=== PATIENT | female | born 1985 | race Caucasian/White ===

== ENCOUNTER 2019-09-20 07:18 | Inpatient (IN) | payer OTHER ==
[2019-09-18 17:14] VITALS: BMI 31.4
[2019-09-20] MEDS ORDERED: PHENAZOPYRIDINE HCL 100 MG TABLET (FP) ONE (07:47)
[2019-09-20] MEDS ORDERED: PNEUMOC 13-VAL CONJ-DIP CRM/PF 0.5 ML DISP.SYRIN IM ONE (08:03)
[2019-09-20] MEDS ORDERED: CEFAZOLIN 2 GM in DEXTROSE 5%-WATER - 100 ML IVPB ONE (08:21)
[2019-09-20] MEDS ORDERED: PHENAZOPYRIDINE HCL 100 MG TABLET (FP) PO ONE (08:21)
[2019-09-20] MEDS ORDERED: MIDAZOLAM HCL 2 MG/2 ML SINGLE DOSE VIAL ONE (08:47)
[2019-09-20] MEDS ORDERED: ROCURONIUM BROMIDE 50 MG/5 ML SYRINGE ONE (08:48)
[2019-09-20] MEDS ORDERED: PROPOFOL 20 ML ONE ×2 (08:48)
[2019-09-20] MEDS ORDERED: oxyCODONE HCL 5 MG TABLET PO PRN ×2 (08:48)
[2019-09-20] MEDS ORDERED: ONDANSETRON 4 MG/2 ML VIAL IVPUSH PRN ×3 (08:48→12:38)
--- NOTE | 2019-09-20 09:09 | HP ---
History & Physical Update - History History: No Change - Physical Physical: No Change - Assessment Assessment: No Change - Plan Plan: No Change (Full H&P is in paper chart from 08/24/19)
[2019-09-20] MEDS ORDERED: ROPIVACAINE HCL 0.5% 30ML VIAL ONE (09:16)
--- NOTE | 2019-09-20 09:21 | OP ---
Operative Note - Note: Operative Date: 09/20/19 Pre-Operative Diagnosis: Leiomyomatous Uterus. Intramural myomas. subserosal myomas Operation: Abdominal Myomectomy - extensive Findings: 21 myomas Post-Operative Diagnosis: Same as Pre-op Surgeon: Lavinia Nava Commutator Inspector: Boby Browne Anesthesia: General Estimated Blood Loss (mls): 600 Operative Report Dictated: Yes
[2019-09-20] MEDS ORDERED: fentaNYL CITRATE 250 MCG/5 ML VIAL ONE (09:53)
[2019-09-20] MEDS ORDERED: ACETAMINOPHEN INJECTION 100 ML IVPB ONE (09:55)
[2019-09-20] MEDS ORDERED: ceFAZolin 2 GRAM PREMIX BAG IVPB ONE (10:05)
[2019-09-20] MEDS ORDERED: DEXAMETHASONE SOD PHOSPHATE 4 MG/1 ML VIAL ONE (10:08)
[2019-09-20] MEDS ORDERED: ceFAZolin SODIUM 1 GM VIAL ONE ×2 (10:15→17:28)
[2019-09-20] MEDS ORDERED: ePHEDrine SULFATE 50 MG/1 ML AMPULE ONE (10:30)
[2019-09-20] MEDS ORDERED: KETOROLAC TROMETHAMINE 30 MG/1 ML VIAL ONE (10:32)
[2019-09-20] MEDS ORDERED: NEOSTIGMINE METHYLSULFATE 0.5 MG/ML - 10 ML MDV ONE (10:32)
[2019-09-20] MEDS ORDERED: GLYCOPYRROLATE 0.2 MG/1 ML VIAL ONE (10:44)
[2019-09-20] MEDS ORDERED: DESFLURANE GAS 240 ML BOTTLE IH ONE (10:54)
[2019-09-20] MEDS ORDERED: HYDROmorphone HCl 2 MG/ML VIAL ONE (11:47)
[2019-09-20] MEDS ORDERED: IBUPROFEN 800 MG/8 ML IJ IVPB PRN (12:11)
[2019-09-20] MEDS ORDERED: DOCUSATE SODIUM 100 MG CAPSULE (FP) PO PRN (12:11)
[2019-09-20] MEDS ORDERED: BISACODYL 5 MG TABLET.DR (FP) PO PRN (12:11)
[2019-09-20] MEDS ORDERED: SIMETHICONE 80 MG TAB.CHEW (FP) PO PRN (12:11)
--- NOTE | 2019-09-20 12:19 | SURG ---
Surgery Echocardiography Radiology Technologist Note Echocardiography Radiology Technologist: Boby Browne PA-C Date of Service: 09/20/19 Diagnosis: Fibroid uterus Procedure: Abdominal myomectomy I was present for the entirety of the operative procedure. For further detail, please refer to operative report. Visit type - Case Type Case Type: Scheduled - Emergency Emergency Visit: No - New patient This patient is new to me today: Yes Date on this admission: 09/20/19 - Critical Care Critical Care patient: No
[2019-09-20] MEDS: HYDROmorphone *PCA* 10MG/50ML DISP.SYRIN PCA SCH (12:45)
[2019-09-20 13:06] LABS: BASO % 0.5 % (0-2.0); EOS % 0.3 % (0-4.5); HEMATOCRIT 25.1 % (32.4-45.2); HEMOGLOBIN 7.6 GM/dL (10.7-15.3); LYMPH % 11.9 % (8-40); MCHC 30.2 g/dl (32.0-36.0); MEAN CELL VOLUME 64.6 fl (80-96); MEAN PLT VOLUME 10.3 fl (7.5-11.1); MONO % 1.3 % (3.8-10.2); PLATELET COUNT 313 K/MM3 (134-434); RBC 3.88 M/mm3 (3.60-5.2); RDW 21.7 % (11.6-15.6)
[2019-09-20 13:07] LABS: MCH 19.5 pg (25.7-33.7)
[2019-09-20 13:51] LABS: ANISOCYTOSIS 2+; MACROCYTOSIS 0; OVALOCYTE 1+; PLATELET ESTIMATE NORMAL; TEAR DROP CELLS 1+
[2019-09-20] MEDS: LACTATED RINGERS SOLUTION 1,000 ML IV SCH (14:43)
[2019-09-20] MEDS: metFORMIN HCL 500 MG TABLET (FP) PO SCH (16:16)
[2019-09-20] MEDS: sitaGLIPtin PHOSPHATE 50 MG TABLET PO SCH (16:16)
[2019-09-20] MEDS ORDERED: DEXTROSE 5%-WATER - 50 ML IVPB ONE (17:28)
[2019-09-20] MEDS: CEFAZOLIN 1 GM in DEXTROSE 5%-WATER - 50 ML IVPB SCH (17:31)
[2019-09-20 20:59] LABS: HEMATOCRIT 23.5 % (32.4-45.2); MCHC 29.9 g/dl (32.0-36.0); MEAN PLT VOLUME 10.1 fl (7.5-11.1); PLATELET COUNT 227 K/MM3 (134-434); RBC 3.68 M/mm3 (3.60-5.2); RDW 21.6 % (11.6-15.6); WHITE BLOOD COUNT 12.9 K/mm3 (4.0-10.0)
[2019-09-20 21:02] LABS: MCH 19.1 pg (25.7-33.7)
[2019-09-20 21:04] LABS: CALCIUM 7.8 mg/dL (8.5-10.1); CREATININE 0.8 mg/dL (0.55-1.3); POTASSIUM 4.6 mmol/L (3.5-5.1)
[2019-09-20] MEDS ORDERED: PATIENT'S OWN MEDICATION (NON-FORMULARY) (Sitagliptin Phos/Metformin Hcl [Janumet 50-1,000 PO SCH (22:00)
[2019-09-21] MEDS ORDERED: ceFAZolin SODIUM 1 GM VIAL ONE ×2 (00:16→10:05)
[2019-09-21] MEDS ORDERED: DEXTROSE 5%-WATER - 50 ML IVPB ONE ×2 (00:16→10:05)
[2019-09-21] MEDS: CEFAZOLIN 1 GM in DEXTROSE 5%-WATER - 50 ML IVPB SCH ×2 (01:13→10:07)
[2019-09-21] MEDS: metFORMIN HCL 500 MG TABLET (FP) PO SCH ×2 (06:03→17:12)
[2019-09-21] MEDS: sitaGLIPtin PHOSPHATE 50 MG TABLET PO SCH ×2 (06:03→17:15)
[2019-09-21] MEDS: glipiZIDE-XL 5 MG TAB.ER.24 PO SCH (06:03)
[2019-09-21 08:08] LABS: HEMOGLOBIN 7.6 GM/dL (10.7-15.3); MCH 21.7 pg (25.7-33.7); MCHC 32.9 g/dl (32.0-36.0); MEAN CELL VOLUME 66.1 fl (80-96); MEAN PLT VOLUME 10.3 fl (7.5-11.1); PLATELET COUNT 216 K/MM3 (134-434); RBC 3.49 M/mm3 (3.60-5.2); RDW 23.3 % (11.6-15.6); WHITE BLOOD COUNT 10.9 K/mm3 (4.0-10.0)
[2019-09-21 08:30] LABS: BLOOD UREA NITROGEN 11.7 mg/dL (7-18); CALCIUM 7.6 mg/dL (8.5-10.1); CREATININE 0.7 mg/dL (0.55-1.3)
[2019-09-21] MEDS ORDERED: PT OWN MED DRAWER 7, Y5N ONE ×2 (08:40→17:27)
--- NOTE | 2019-09-21 09:31 | PN ---
Progress Note (short form) - Note Progress Note: 34F POD#1 for open myomectomy under GA with TAP block. Pt. with IV DIGITAL ANALYTICS MANAGER. No anesthesia related complications. Pain adequately controlled with IV DIGITAL ANALYTICS MANAGER. Continue current management per primary team. Continue IV DIGITAL ANALYTICS MANAGER.
[2019-09-21] MEDS: ENOXAPARIN NA (PORCINE) 40 MG/0.4 ML DISP.SYRIN SQ SCH (09:41)
[2019-09-21] MEDS: MULTIVITAMINS THER W-MINERALS COMBO TABLET (FP) PO SCH (09:41)
[2019-09-21] MEDS: IRON POLYSACCHARIDES 150 MG CAPSULE PO SCH (09:42)
[2019-09-21] MEDS: LACTATED RINGERS SOLUTION 1,000 ML IV SCH ×2 (09:42→20:02)
--- NOTE | 2019-09-21 09:44 | PN ---
Progress Note (short form) - Note Progress Note: ASSISTANT HAIRSTYLIST SURGERY POD #1 s/p Abdominal myomectomy Alert. No acute events since surgery per RN notes. Hasn't been OOB yet. Storm remains in place. Denies n/v/f/c, CP, palpitations, SOB, MARQUEZ or vaginal bleeding. Last Vital Signs Temp Pulse Resp BP Pulse Ox 98.5 F 88 20 120/67 99 09/20/19 22:00 09/20/19 22:00 09/20/19 22:00 09/20/19 22:00 09/20/19 21:00 CBC, BMP 09/21/19 07:00 09/21/19 07:00 Blood Type Blood Type A NEGATIVE 09/20/19 07:28 Gen: nad ABD: obese habitus. dressing c/d/i. No hematoma. : storm to gravity (clear) LE: SCDs bilat. Soft. NT. No edema/swelling Problem List - Problems (1) Leiomyoma of body of uterus Assessment/Plan: OOB and ambulate Monitor H/H DC storm and begin TOV Regular diet Pain management via RADIAL DRILL PRESS OPERATOR FOR PLASTIC per Anasthesia (received pre-op TAP block as well) DC planning 09/22/19 Code(s): D25.9 - LEIOMYOMA OF UTERUS, UNSPECIFIED (2) Anemia Code(s): D64.9 - ANEMIA, UNSPECIFIED
[2019-09-21] MEDS ORDERED: PNEUMOCOCCAL 23 VACCINE 0.5 ML VIAL IM ONE (10:00)
[2019-09-21] MEDS: HYDROmorphone *PCA* 10MG/50ML DISP.SYRIN PCA SCH (15:01)
[2019-09-21 18:04] LABS: BASO % 0.2 % (0-2.0); EOS % 0.4 % (0-4.5); HEMATOCRIT 22.8 % (32.4-45.2); HEMOGLOBIN 7.2 GM/dL (10.7-15.3); LYMPH % 8.9 % (8-40); MCH 21.1 pg (25.7-33.7); MCHC 31.5 g/dl (32.0-36.0); MEAN CELL VOLUME 66.9 fl (80-96); MEAN PLT VOLUME 9.7 fl (7.5-11.1); MONO % 5.6 % (3.8-10.2); NEUT % 84.9 % (42.8-82.8); PLATELET COUNT 178 K/MM3 (134-434); RDW 23.6 % (11.6-15.6); WHITE BLOOD COUNT 11.7 K/mm3 (4.0-10.0)
[2019-09-21] MEDS: oxyCODONE HCL 5 MG TABLET PO PRN ×2 (19:41→23:44)
[2019-09-21] MEDS: ACETAMINOPHEN 325 MG TABLET (FP) PO PRN (21:41)
[2019-09-22] MEDS: oxyCODONE HCL 5 MG TABLET PO PRN ×4 (03:33→22:51)
[2019-09-22] MEDS: LACTATED RINGERS SOLUTION 1,000 ML IV SCH ×3 (03:48→19:41)
[2019-09-22] MEDS ORDERED: PT OWN MED DRAWER 7, Y5N ONE ×2 (05:22→09:26)
[2019-09-22] MEDS: metFORMIN HCL 500 MG TABLET (FP) PO SCH ×2 (06:53→16:53)
[2019-09-22] MEDS: sitaGLIPtin PHOSPHATE 50 MG TABLET PO SCH ×2 (06:54→16:53)
[2019-09-22] MEDS: glipiZIDE-XL 5 MG TAB.ER.24 PO SCH (06:54)
--- NOTE | 2019-09-22 08:12 | PN ---
Progress Note (short form) - Note Progress Note: Anesthesia pain pt seen and examined S:Alert and awake O: Vital Signs Temperature 99.1 F 09/22/19 07:32 Pulse Rate 63 09/22/19 07:32 Respiratory Rate 20 09/22/19 07:32 Blood Pressure 113/63 09/22/19 07:32 O2 Sat by Pulse Oximetry (%) 95 09/21/19 21:00 CBC, BMP 09/21/19 17:50 09/21/19 07:00 Current Active Problems Anemia (Acute) Leiomyoma of body of uterus (Acute) s/p Open myomectomy CERTIFIED ATHLETIC TRAINER dced Doing well post op Continue PO pain meds Kevyn Rubio MD
[2019-09-22] MEDS: ENOXAPARIN NA (PORCINE) 40 MG/0.4 ML DISP.SYRIN SQ SCH (09:22)
[2019-09-22] MEDS: MULTIVITAMINS THER W-MINERALS COMBO TABLET (FP) PO SCH (09:22)
[2019-09-22] MEDS: IRON POLYSACCHARIDES 150 MG CAPSULE PO SCH (09:26)
--- NOTE | 2019-09-22 09:33 | PN ---
Progress Note (SOAP) - Subjective Chief Complaint: Pt with sob dizziness upon standing - Current Medications Current Medications: Active Medications Acetaminophen (Tylenol -) 650 mg PO Q4H PRN PRN Reason: FEVER Last Admin: 09/21/19 21:41 Dose: 650 mg Bisacodyl (Dulcolax -) 10 mg PO ONCE PRN PRN Reason: CONSTIPATION Diphenhydramine HCl (Benadryl Injection -) 12.5 mg IVPUSH ONCE PRN PRN Reason: FOR ITCHING Last Admin: 09/21/19 05:42 Dose: 12.5 mg Docusate Sodium (Colace -) 100 mg PO TID PRN PRN Reason: CONSTIPATION Enoxaparin Sodium (Lovenox -) 40 mg SQ DAILY [facility] Last Admin: 09/22/19 09:22 Dose: 40 mg Fentanyl (Sublimaze Injection -) 50 mcg IVPUSH [id number] PRN PRN Reason: PAIN-PACU ORDER X 4 DOSES ONLY Glipizide (Glucotrol Xl -) 5 mg PO ACBK [facility] Last Admin: 09/22/19 06:54 Dose: 5 mg Lactated Ringer's (Lactated Ringers Solution) 1,000 mls @ 125 mls/hr IV ASDIR [facility] Last Admin: 09/22/19 09:23 Dose: Not Given Ibuprofen (Caldolor Injection -) 800 mg IVPB Q8H PRN PRN Reason: PAIN LEVEL 1-5 Metformin HCl (Glucophage -) 1,000 mg PO BID@0700,1630 [facility] Last Admin: 09/22/19 06:53 Dose: 1,000 mg Multivitamins/Minerals (Theragran-M) 1 each PO DAILY [facility] Last Admin: 09/22/19 09:22 Dose: 1 each Ondansetron HCl (Zofran Injection) 4 mg IVPUSH Q6H PRN PRN Reason: NAUSEA AND/OR VOMITING Ondansetron HCl (Zofran Injection) 4 mg IVPUSH Q4H PRN PRN Reason: NAUSEA AND/OR VOMITING Oxycodone HCl (Roxicodone -) 5 mg PO Q4H PRN PRN Reason: PAIN LEVEL 1-5 Last Admin: 09/22/19 09:22 Dose: 5 mg Oxycodone HCl (Roxicodone -) 10 mg PO Q4H PRN PRN Reason: PAIN LEVEL 6-10 Last Admin: 09/22/19 03:33 Dose: 10 mg Polysaccharide Iron Complex (Niferex-150 -) 150 mg PO DAILY [facility] Last Admin: 09/22/19 09:26 Dose: 150 mg Simethicone (Mylicon -) 80 mg PO Q4H PRN PRN Reason: GAS Sitagliptin Phosphate (Januvia -) 50 mg PO BID@0700,1630 [facility] Last Admin: 09/22/19 06:54 Dose: 50 mg - Objective Vital Signs: Vital Signs Temperature 99.1 F 09/22/19 07:32 Pulse Rate 63 09/22/19 07:32 Respiratory Rate 20 09/22/19 07:32 Blood Pressure 113/63 09/22/19 07:32 O2 Sat by Pulse Oximetry (%) 95 09/21/19 21:00 Constitutional: Yes: Well Nourished, No Distress Neck: Yes: WNL Gastrointestinal: Yes: WNL, Soft, Abdomen, Obese Musculoskeletal: Yes: WNL Extremities: Yes: WNL Edema: No Wound/Incision: Yes: Clean/Dry, Well Approximated, Steri Strips Neurological: Yes: WNL, Alert, Oriented Labs Lab Results: CBC, BMP 09/21/19 17:50 09/21/19 07:00 Problem List - Problems (1) Anemia Problems reviewed: Yes Code(s): D64.9 - ANEMIA, UNSPECIFIED (2) Leiomyoma of body of uterus Code(s): D25.9 - LEIOMYOMA OF UTERUS, UNSPECIFIED Assessment/Plan Sp myomectomy dizziness sob/dysnea POD2 STable Plan transfusion x 1 unit cbc tonight
[2019-09-22] MEDS: ACETAMINOPHEN 325 MG TABLET (FP) PO PRN ×2 (12:30→19:35)
[2019-09-22] MEDS: CEFAZOLIN 2 GM/D5W 2 GM/50 ML ML IVPB SCH ×2 (13:30→19:39)
[2019-09-22 22:27] LABS: PH,URINE 8.5 (5.0-8.0); URINE APPEARANCE CLEAR; URINE BILIRUBIN NEGATIVE (NEGATIVE); URINE COLOR YELLOW; URINE GLUCOSE (UA) NEGATIVE (NEGATIVE); URINE KETONE NEGATIVE (NEGATIVE); URINE LEUK ESTERASE NEGATIVE (NEGATIVE); URINE NITRITE NEGATIVE (NEGATIVE); URINE PROTEIN NEGATIVE (NEGATIVE); URINE UROBILINOGEN 0.2 mg/dL (0.2-1.0)
[2019-09-23] MEDS: CEFAZOLIN 2 GM/D5W 2 GM/50 ML ML IVPB SCH ×4 (00:58→19:35)
[2019-09-23] MEDS: LACTATED RINGERS SOLUTION 1,000 ML IV SCH ×4 (04:36→20:50)
[2019-09-23] MEDS: oxyCODONE HCL 5 MG TABLET PO PRN ×2 (04:39→10:53)
[2019-09-23] MEDS: metFORMIN HCL 500 MG TABLET (FP) PO SCH ×2 (06:08→16:50)
[2019-09-23] MEDS: glipiZIDE-XL 5 MG TAB.ER.24 PO SCH (06:08)
[2019-09-23] MEDS: sitaGLIPtin PHOSPHATE 50 MG TABLET PO SCH ×2 (06:08→16:51)
[2019-09-23] MEDS: ACETAMINOPHEN 325 MG TABLET (FP) PO PRN ×2 (06:09→14:43)
[2019-09-23 10:27] LABS: BASO % 0.5 % (0-2.0); EOS % 1.2 % (0-4.5); HEMATOCRIT 26.1 % (32.4-45.2); HEMOGLOBIN 8.4 GM/dL (10.7-15.3); LYMPH % 6.5 % (8-40); MCH 22.4 pg (25.7-33.7); MCHC 32.3 g/dl (32.0-36.0); MEAN CELL VOLUME 69.6 fl (80-96); MEAN PLT VOLUME 9.3 fl (7.5-11.1); MONO % 4.9 % (3.8-10.2); NEUT % 86.9 % (42.8-82.8); PLATELET COUNT 218 K/MM3 (134-434); RBC 3.76 M/mm3 (3.60-5.2); RDW 24.9 % (11.6-15.6); WHITE BLOOD COUNT 15.1 K/mm3 (4.0-10.0)
[2019-09-23] MEDS: ENOXAPARIN NA (PORCINE) 40 MG/0.4 ML DISP.SYRIN SQ SCH (10:32)
[2019-09-23] MEDS: MULTIVITAMINS THER W-MINERALS COMBO TABLET (FP) PO SCH (10:32)
[2019-09-23] MEDS ORDERED: PT OWN MED DRAWER 7, Y5N ONE ×2 (10:35→20:25)
[2019-09-23] MEDS: IRON POLYSACCHARIDES 150 MG CAPSULE PO SCH (10:35)
--- NOTE | 2019-09-23 11:51 | PN ---
Progress Note (SOAP) - Subjective Chief Complaint: Pt found sitting in chair feeing better pt remains low grade temp - Current Medications Current Medications: Active Medications Acetaminophen (Tylenol -) 650 mg PO Q4H PRN PRN Reason: FEVER Last Admin: 09/23/19 06:09 Dose: 650 mg Bisacodyl (Dulcolax -) 10 mg PO ONCE PRN PRN Reason: CONSTIPATION Diphenhydramine HCl (Benadryl Injection -) 12.5 mg IVPUSH ONCE PRN PRN Reason: FOR ITCHING Last Admin: 09/21/19 05:42 Dose: 12.5 mg Docusate Sodium (Colace -) 100 mg PO TID PRN PRN Reason: CONSTIPATION Last Admin: 09/23/19 10:46 Dose: 100 mg Enoxaparin Sodium (Lovenox -) 40 mg SQ DAILY [facility] Last Admin: 09/23/19 10:32 Dose: 40 mg Fentanyl (Sublimaze Injection -) 50 mcg IVPUSH [id number] PRN PRN Reason: PAIN-PACU ORDER X 4 DOSES ONLY Glipizide (Glucotrol Xl -) 5 mg PO ACBK [facility] Last Admin: 09/23/19 06:08 Dose: 5 mg Lactated Ringer's (Lactated Ringers Solution) 1,000 mls @ 125 mls/hr IV ASDIR [facility] Last Admin: 09/23/19 10:33 Dose: Not Given Cefazolin Sodium/Dextrose (Ancef 2 Gm Premixed Ivpb -) 2 gm in 50 mls @ 100 mls /hr IVPB Q6H [facility] Last Admin: 09/23/19 07:01 Dose: 100 mls/hr Ibuprofen (Caldolor Injection -) 800 mg IVPB Q8H PRN PRN Reason: PAIN LEVEL 1-5 Metformin HCl (Glucophage -) 1,000 mg PO BID@0700,1630 [facility] Last Admin: 09/23/19 06:08 Dose: 1,000 mg Multivitamins/Minerals (Theragran-M) 1 each PO DAILY [facility] Last Admin: 09/23/19 10:32 Dose: 1 each Ondansetron HCl (Zofran Injection) 4 mg IVPUSH Q6H PRN PRN Reason: NAUSEA AND/OR VOMITING Ondansetron HCl (Zofran Injection) 4 mg IVPUSH Q4H PRN PRN Reason: NAUSEA AND/OR VOMITING Oxycodone HCl (Roxicodone -) 5 mg PO Q4H PRN PRN Reason: PAIN LEVEL 1-5 Last Admin: 09/23/19 10:53 Dose: 5 mg Oxycodone HCl (Roxicodone -) 10 mg PO Q4H PRN PRN Reason: PAIN LEVEL 6-10 Last Admin: 09/22/19 16:50 Dose: 10 mg Polysaccharide Iron Complex (Niferex-150 -) 150 mg PO DAILY [facility] Last Admin: 09/23/19 10:35 Dose: 150 mg Simethicone (Mylicon -) 80 mg PO Q4H PRN PRN Reason: GAS Sitagliptin Phosphate (Januvia -) 50 mg PO BID@0700,1630 [facility] Last Admin: 09/23/19 06:08 Dose: 50 mg - Objective Vital Signs: Vital Signs Temperature 100.5 F H 09/23/19 06:00 Pulse Rate 105 H 09/23/19 06:00 Respiratory Rate 18 09/23/19 06:00 Blood Pressure 117/72 09/23/19 06:00 O2 Sat by Pulse Oximetry (%) 97 09/22/19 21:00 Constitutional: Yes: Well Nourished, No Distress Gastrointestinal: Yes: WNL, Normal Bowel Sounds, Soft Labs Lab Results: CBC, BMP 09/23/19 09:30 09/21/19 07:00 Problem List - Problems (1) Anemia Code(s): D64.9 - ANEMIA, UNSPECIFIED (2) Leiomyoma of body of uterus Code(s): D25.9 - LEIOMYOMA OF UTERUS, UNSPECIFIED Assessment/Plan Sp myomectomy Low grade temp POD 3 STable anemia - hcyt improved at 26 Plan CbC tomorrow Continue IV antibiotics
[2019-09-23] MEDS ORDERED: IBUPROFEN 600 MG TABLET (FP) PO PRN (12:50)
[2019-09-23 19:37] LABS: BASO % 1.1 % (0-2.0); EOS % 2.4 % (0-4.5); HEMATOCRIT 27.1 % (32.4-45.2); HEMOGLOBIN 8.5 GM/dL (10.7-15.3); LYMPH % 11.5 % (8-40); MCH 22.1 pg (25.7-33.7); MCHC 31.4 g/dl (32.0-36.0); MEAN CELL VOLUME 70.4 fl (80-96); MEAN PLT VOLUME 9.2 fl (7.5-11.1); MONO % 6.5 % (3.8-10.2); NEUT % 78.5 % (42.8-82.8); PLATELET COUNT 245 K/MM3 (134-434); RBC 3.84 M/mm3 (3.60-5.2); RDW 25.8 % (11.6-15.6); WHITE BLOOD COUNT 13.3 K/mm3 (4.0-10.0)
[2019-09-23 21:24] LABS: ANISOCYTOSIS 3+; MACROCYTOSIS 1+; OVALOCYTE 1+; PLATELET ESTIMATE NORMAL
[2019-09-24] MEDS: CEFAZOLIN 2 GM/D5W 2 GM/50 ML ML IVPB SCH ×2 (01:30→06:54)
[2019-09-24] MEDS: LACTATED RINGERS SOLUTION 1,000 ML IV SCH ×2 (05:29→09:46)
[2019-09-24] MEDS: sitaGLIPtin PHOSPHATE 50 MG TABLET PO SCH (06:34)
[2019-09-24] MEDS: metFORMIN HCL 500 MG TABLET (FP) PO SCH (06:34)
[2019-09-24] MEDS: glipiZIDE-XL 5 MG TAB.ER.24 PO SCH (06:34)
[2019-09-24 06:59] VITALS: TEMP 98.2
[2019-09-24] MEDS: ENOXAPARIN NA (PORCINE) 40 MG/0.4 ML DISP.SYRIN SQ SCH (09:46)
[2019-09-24] MEDS: IRON POLYSACCHARIDES 150 MG CAPSULE PO SCH (09:46)
[2019-09-24] MEDS: MULTIVITAMINS THER W-MINERALS COMBO TABLET (FP) PO SCH (09:46)
[2019-09-24] MEDS ORDERED: guaiFENesin 200 MG/10 ML 10 ML UNIT-DOSE CUPS PO ONE (11:32)
--- NOTE | 2019-09-24 13:50 | DS ---
Physical Exam: SUBJECTIVE: Patient seen and examined in the am. No nausea or emesis, having bowel movments. Has slight sore throat and cough. OBJECTIVE: Vital Signs Temperature 98.2 F 09/24/19 04:00 Pulse Rate 94 H 09/24/19 04:00 Respiratory Rate 18 09/24/19 04:00 Blood Pressure 116/71 09/24/19 04:00 O2 Sat by Pulse Oximetry (%) 97 09/23/19 21:00 PHYSICAL EXAM GENERAL: The patient is awake, alert, and fully oriented, in no acute distress. LUNGS: Breath sounds equal, clear to auscultation bilaterally, no wheezes, no crackles. HEART: Regular rate and rhythm. ABDOMEN: Soft, nondistended, inc tenderness. Incision c/d/i with steristrips. EXTREMITIES: no edema or swelling noted b/l. PAMELA in place. LABS CBC,CMP WBC 13.3 K/mm3 (4.0-10.0) H 09/23/19 19:21 RBC 3.84 M/mm3 (3.60-5.2) 09/23/19 19:21 Hgb 8.5 GM/dL (10.7-15.3) L 09/23/19 19:21 Hct 27.1 % (32.4-45.2) L 09/23/19 19:21 MCV 70.4 fl (80-96) L 09/23/19 19:21 MCH 22.1 pg (25.7-33.7) L 09/23/19 19:21 MCHC 31.4 g/dl (32.0-36.0) L 09/23/19 19:21 RDW 25.8 % (11.6-15.6) H 09/23/19 19:21 Plt Count 245 K/MM3 (134-434) 09/23/19 19:21 MPV 9.2 fl (7.5-11.1) 09/23/19 19:21 Absolute Neuts (auto) 10.5 K/mm3 (1.5-8.0) H 09/23/19 19:21 Neutrophils % 78.5 % (42.8-82.8) 09/23/19 19:21 Neutrophils % (Manual) 80.2 % (42.8-82.8) 09/20/19 12:35 Band Neutrophils % 3.9 % 09/20/19 12:35 Lymphocytes % 11.5 % (8-40) D 09/23/19 19:21 Lymphocytes % (Manual) 12.9 % (8-40) 09/20/19 12:35 Monocytes % 6.5 % (3.8-10.2) 09/23/19 19:21 Monocytes % (Manual) 3 % (3.8-10.2) L 09/20/19 12:35 Eosinophils % 2.4 % (0-4.5) D 09/23/19 19:21 Eosinophils % (Manual) 0.0 % (0-4.5) 09/20/19 12:35 Basophils % 1.1 % (0-2.0) 09/23/19 19:21 Basophils % (Manual) 0.0 % (0-2.0) 09/20/19 12:35 Myelocytes % (Man) 0 % (0-2) 09/20/19 12:35 Promyelocytes % (Man) 0 % (0-2) 09/20/19 12:35 Blast Cells % (Manual) 0 % (0-0) 09/20/19 12:35 Nucleated RBC % 0 % (0-0) 09/23/19 19:21 Metamyelocytes 0 % (0-2) 09/20/19 12:35 Hypochromia 1+ 09/23/19 19:21 Platelet Estimate Normal 09/23/19 19:21 Platelet Comment Giant platelets 09/23/19 19:21 Polychromasia 1+ 09/23/19 19:21 Poikilocytosis 1+ 09/23/19 19:21 Basophilic Stippling 1+ 09/20/19 12:35 Anisocytosis 3+ 09/23/19 19:21 Microcytosis 1+ 09/23/19 19:21 Macrocytosis 1+ 09/23/19 19:21 Tear Drop Cells 1+ 09/20/19 12:35 Ovalocytes 1+ 09/23/19 19:21 Fragmented RBCs 1+ 09/20/19 12:35 Sodium 138 mmol/L (136-145) 09/21/19 07:00 Potassium 4.0 mmol/L (3.5-5.1) 09/21/19 07:00 Chloride 104 mmol/L (98-107) 09/21/19 07:00 Carbon Dioxide 30 mmol/L (21-32) 09/21/19 07:00 Anion Gap 3 MMOL/L (8-16) L 09/21/19 07:00 BUN 11.7 mg/dL (7-18) 09/21/19 07:00 Creatinine 0.7 mg/dL (0.55-1.3) 09/21/19 07:00 Est GFR (CKD-EPI)AfAm 131.02 09/21/19 07:00 Est GFR (CKD-EPI)NonAf 113.04 09/21/19 07:00 POC Glucometer 172 UNITS (80-120) 09/24/19 11:42 Random Glucose 121 mg/dL (74-106) H 09/21/19 07:00 Calcium 7.6 mg/dL (8.5-10.1) L 09/21/19 07:00 Serum , Qual Negative 09/20/19 07:28 HOSPITAL COURSE: The patient was admitted to the Med-Surg Unit after an elective repair of her leiomyomatous uters. Now, s/p open abdominal myomectomy. Pain management was achieved with a narcotic and non-narcotic oral and IV regimen.Hemoglobin and hematocrit were monitored, and the patient was transfused PRBC post-op. The patients vitals and remained stable throughout admission and her hematocrit responded appropriately to transfusion. Magui- operative IV ABX were administered and maintained while in the hospital. She was discharged on oral augmentin. DVT prophylaxis was achieved with Lovenox 40mg qd, SCDs and early ambulation. Prior to discharge the patients was tolerateing a regular diet and having bowel function. The patient ambulated the halls without issue. Narcotic scripts were checked with [facility] prior to escribe. The discharge instructions and an oral pain management plan were reviewed with the patient. All questions answered. Above plan discussed with Dr. Nava and agreed. Date of Admission:09/20/19 Date of Discharge: 09/24/19 Minutes to complete discharge: 20
[2019-09-24 14:15] VITALS: BP 123/63; PULSE 93
--- NOTE | 2019-09-24 17:08 | PATH ---
Surgical Pathology Report Patient Name: JEMMA FISH Med. Rec. #: [id number] /Age/Gender: 1985 (Age: 34) / F Account: [id number] Location: [facility] MED/SURG Taken: 09/20/2019 Received: 09/20/2019 Reported: 09/24/2019 Physicians: Lavinia Nava M.D. Specimen(s) Received UTERINE FIBROIDS Clinical History Uterine fibroids Final Diagnosis UTERINE FIBROIDS, ABDOMINAL MYOMECTOMY: 458 G LEIOMYOMA(TA) WITH DEGENERATIVE CHANGES. Electronically Signed Tanya Montaño M.D. Gross Description Received in formalin labeled "uterine fibroids," is a 458 g, aggregate of 17 william, firm to rubbery nodules, consistent with fibroids. The fibroids range from 0.5-9.0 cm in greatest dimension. Sectioning of the 2 largest fibroids displays central degeneration. The remaining fibroids display william, firm to rubbery parenchyma with whorled architecture. Bookkeeper Assistant sections are submitted in 9 cassettes as follows: 1-4-smaller fibroids; 5-6-second largest fibroid; 7-9-largest fibroid. /09/21/2019 saudi09/21/2019
--- NOTE | 2019-09-24 18:24 | OP ---
DATE OF OPERATION: 09/20/2019 PREOPERATIVE DIAGNOSIS: Leiomyomatous uterus, intramural myomas, and subserosal myomas. OPERATION: Abdominal myomectomy. POSTOPERATIVE DIAGNOSIS: Leiomyomatous uterus, intramural myomas, and subserosal myomas. SURGEON: Lavinia Nava MD RIG OPERATOR: ESTIMATED BLOOD LOSS: Approximately 600-700 mL. PROCEDURE: Patient was taken to operating room, placed in supine position, prepped and draped in usual sterile fashion. A time-out was performed in accordance with hospital regulation. Pfannenstiel skin incision was made with a scalpel. Cautery was then used to go through layers of abdominal wall to the level of the fascia. Fascia was cut in the midline. Cautery was then used to open the fascia in smiling fashion. Kochers were then used to bluntly and sharply dissect the rectus muscle off the fascia. Muscle was split in the midline. Peritoneal cavity was then entered and carried upward and downward. A leiomyomatous uterus was then exteriorized. Multiple myomas were noted. Posteriorly some large myomas were noted. A posterior transverse incision was then made, and a large 8-cm myoma was then enucleated out. More myomas were noted. Incisions were made, and myomas were removed all posteriorly. Muscle was approximated using 0 Vicryl suture in a continuous fascia with V-Lock suture on the serosa, 2-0 V-Lock suture was used to close the serosa of the myomas and posteriorly. Myomas were noted throughout the endometrial cavity. Anterior incisions were made, and myomas were then enucleated out, and fundal incisions were made, and myomas were enucleated out. Serosal myomas were removed, approximately 4 or 5 of them subserosally. Anteriorly, large myoma was then enucleated out approximately 5 cm. All in all, approximately 20 myomas were removed from the uterus both anteriorly and posteriorly. Discussed with the patient getting a section for during next . All incisions were then closed using 0 Vicryl suture in continuous fashion locking on the muscle, and serosa was closed using 2-0 V-Lock suture in a closing fashion. Hemostasis was achieved. Numerous blood loss was done, approximately 600-700 mL. Uterus was then anteriorized. Tubes and ovaries were noted to be normal. Abdominal sweep done. Abdominal cavity was then cleaned with clean lap pads. Peritoneum closed using 0 Vicryl suture. Fascia was then closed using 0 Vicryl suture in 2 parts. Subcutaneous was approximated using 0 Vicryl suture. Skin was then closed using 3-0 Vicryl in subcuticular fashion. Wound was washed and dressed. Patient had tolerated procedure well. Estimated blood loss was 600-700 mL. Tabatha [id number]
== END 2019-09-24 14:24 | disposition home or self-care (01) | DRG 743 ==
LOC: JASUSAT 07:18 → EDSTATUS 08:00 → JERBED 12:11 → OBSVTOIN 12:11 → INTOOBSV 12:11 → JSAMEDAYSX 14:35 → J8W 15:04
PROVIDERS: ADMIT Obstetrics & Gynecology; ATTEND Obstetrics & Gynecology
PROC: 0UB90ZZ Excision of Uterus, Open Approach (ICD-10-PCS; principal; 2019-09-20 09:00)
DX: D25.1 Intramural leiomyoma of uterus (principal); D25.9 Leiomyoma of uterus, unspecified; D64.9 Anemia, unspecified
CPT/HCPCS: 36415; 36430; 80048; 81003; 82962; 84703; 85025; 85027; 86078; 86850; 86900; 86901; 86922; 88305-TC; 90732; 94760; G0009; J0131; P9058